=== PATIENT | male | born 1940 | race Caucasian/White ===

== ENCOUNTER → 2018-05-10 | Outpatient (CLI) | payer OTHER ==
[~2018-05-10] MED LIST: AMLO2.5T PO; AMLO5TAB3 PO; ASPEC81 PO; CHOL100010 PO; CRG3125 PO; Flax Seed Oil PO; PERFLUTREN LIPID MICROSPHERE (DEFINITY) IV ONE; SIMV80TA2 PO
--- NOTE | 2018-05-10 15:34 | ECHOCARDIOGRAM REPORT ---
*NOTICE TO RECEIVING [employer] This information is strictly Confidential and protected under [place] law. [place] law prohibits you from making any further disclosure of this information unless further disclosure is expressly permitted by the written consent of the person to whom it pertains or is authorized by law. A general authorization for the release of medical or other information is not sufficient for this purpose. Hospital accepts no responsibility if the information is made available to any other person, INCLUDING THE PATIENT. Interpretation Summary * Name: ADRIANO JOHNSON Study Date: 05/10/2018 01:39 PM BP: 135/88 mmHg * Patient Location: [facility] HR: 86 * : 1940 (M/d/yyyy) Gender: Male Height: 68 in * Age: 77 yrs Ethnicity: [place] Weight: 220 lb * Ordering Physician: Mireya, No * Referring Physician: Orlando Nolan D.O. * Performed By: Sheree Owens RDCS * * Reason For Study: SOB * BSA: 2.1 m2 * -- Conclusions -- * There is moderate concentric left ventricular hypertrophy. * Left ventricular systolic function is normal. * Grade I diastolic dysfunction, (abnormal relaxation pattern). * The right ventricle is mildly dilated. * Mild aortic regurgitation. * Right ventricular systolic pressure is elevated at 50-60mmHg. * Borderline aortic root dilatation. Procedure Details * A contrast injection of Definity was performed to improve assessment of LV function. * Contrast was injected into an intravenous site in the left arm. * One vial of Definity ultrasound contrast was diluted in normal saline to a total volume of 10 ml. A total of '1' ml of solution was administered during imaging. * Lot # [id number] of Definity utilized for procedure. * Expiration date APR 28. * The attending nurse who injected the contrast agent was LOPEZ ALVARADO RN. Left Ventricle * The left ventricle is normal in size. * There is moderate concentric left ventricular hypertrophy. * Left ventricular systolic function is normal. * Ejection Fraction = 55-60%. * Grade I diastolic dysfunction, (abnormal relaxation pattern). * The left ventricular wall motion is normal. Right Ventricle * The right ventricle is mildly dilated. * The right ventricular systolic function is normal. Atria * The left atrial size is normal. * Right atrial size is normal. Mitral Valve * The mitral valve is grossly normal. * Significant mitral regurgitation is absent. Tricuspid Valve * The tricuspid valve is not well visualized, but is grossly normal. * There is mild tricuspid regurgitation. * Right ventricular systolic pressure is elevated at 50-60mmHg. Aortic Valve * The aortic valve is normal in structure and function. * The aortic valve is trileaflet. * No hemodynamically significant valvular aortic stenosis. * Mild aortic regurgitation. Pulmonic Valve * The pulmonic valve is not well visualized. Great Vessels * Borderline aortic root dilatation. Pericardium/Pleural * The pericardium appears normal. MMode 2D Measurements and Calculations IVSd 1.6 cm IVSs 2.1 cm LVIDd 4.2 cm LVIDs 2.8 cm LVPWd 1.7 cm LVPWs 2.0 cm IVS/LVPW 0.94 FS 35.0 % EDV(Teich) 80.8 ml ESV(Teich) 28.6 ml EF(Teich) 64.6 % EDV(cubed) 76.7 ml ESV(cubed) 21.1 ml EF(cubed) 72.5 % % IVS thick 29.1 % % LVPW thick 16.5 % LV mass(C)d 297.7 grams LV mass(C)dI 139.9 grams/m\S\2 LV mass(C)s 248.7 grams LV mass(C)sI 116.8 grams/m\S\2 SV(Teich) 52.2 ml SI(Teich) 24.5 ml/m\S\2 SV(cubed) 55.6 ml SI(cubed) 26.1 ml/m\S\2 Ao root diam 4.0 cm Ao root area 12.8 cm\S\2 LA dimension 3.8 cm LA/Ao 0.95 LVAd ap4 26.0 cm\S\2 LVLd ap4 7.9 cm EDV(MOD-sp4) 73.8 ml EDV(sp4-el) 72.6 ml LVAs ap4 14.5 cm\S\2 LVLs ap4 6.9 cm ESV(MOD-sp4) 28.4 ml ESV(sp4-el) 25.7 ml EF(MOD-sp4) 61.4 % EF(sp4-el) 64.6 % LVAd ap2 25.9 cm\S\2 LVLd ap2 8.2 cm EDV(MOD-sp2) 67.7 ml EDV(sp2-el) 69.6 ml LVAs ap2 14.5 cm\S\2 LVLs ap2 6.6 cm ESV(MOD-sp2) 26.7 ml ESV(sp2-el) 26.9 ml EF(MOD-sp2) 60.5 % EF(sp2-el) 61.4 % LVLd %diff 3.6 % EDV(MOD-bp) 70.8 ml LVLs %diff -4.48 % ESV(MOD-bp) 27.0 ml EF(MOD-bp) 61.9 % SV(MOD-sp4) 45.3 ml SI(MOD-sp4) 21.3 ml/m\S\2 SV(MOD-sp2) 41.0 ml SI(MOD-sp2) 19.3 ml/m\S\2 SV(MOD-bp) 43.9 ml SI(MOD-bp) 20.6 ml/m\S\2 SV(sp4-el) 46.9 ml SI(sp4-el) 22.0 ml/m\S\2 SV(sp2-el) 42.7 ml SI(sp2-el) 20.1 ml/m\S\2 Doppler Measurements and Calculations MV E max nesha 49.9 cm/sec MV A max nesha 88.6 cm/sec MV E/A 0.56 MV dec time 0.35 sec Ao V2 max 131.1 cm/sec Ao max PG 6.9 mmHg Ao max PG (full) 0.99 mmHg AI max nesha 398.6 cm/sec AI max PG 63.6 mmHg AI dec slope 192.4 cm/sec\S\2 AI P1/2t 606.8 msec LV V1 max PG 5.9 mmHg LV V1 max 121.3 cm/sec TR max nesha 345.1 cm/sec
--- NOTE | 2018-05-11 12:54 | PULMONARY FUNCTION TEST ---
Spirometry is normal. Repeat study done following bronchodilators showed significant improvement in small airways function only. Flow volume loops were consistent with spirometric findings.
== END | disposition home or self-care (01) ==
LOC: C.RC 12:21
PROVIDERS: ATTEND Family Medicine
DX: R06.02 Shortness of breath (principal); R05 Cough

== ENCOUNTER → 2018-06-02 | Outpatient (CLI) | payer OTHER ==
[~2018-06-02] MED LIST changes: -PERFLUTREN LIPID MICROSPHERE (DEFINITY) IV ONE
[2018-06-02 16:39] LABS: BASO % 0.3 %; BASO ABS # 0.02 K/uL (0-0.2); EOS % 1.8 %; EOS ABS # 0.12 K/uL (0-0.5); HEMATOCRIT 43.1 % (42-52); HEMOGLOBIN 14.3 g/dL (14.0-18.0); IG# 0.02 K/uL (0.00-0.02); LYMPH % 24.7 %; LYMPH ABS # 1.63 K/uL (1.2-3.4); MEAN CELL VOLUME 98.2 fL (80-100); MEAN CORPUSCULAR HEMOGLOBIN 32.6 pg (25-34); MEAN CORPUSCULAR HGB CONC 33.2 g/dl (32-36); MEAN PLATELET VOLUME 11.2 fL (7.4-10.4); MONO ABS # 0.66 K/uL (0.11-0.59); NEUT % 62.9 %; NEUT ABS # 4.15 K/uL (1.4-6.5); PLATELET COUNT 238 K/uL (130-400); RED CELL DISTRIBUTION WIDTH CV 13.6 % (11.5-14.5); RED CELL DISTRIBUTION WIDTH SD 48.5 fL (36.4-46.3)
[2018-06-02 17:00] LABS: ALBUMIN 3.7 gm/dl (3.4-5.0); ALKALINE PHOSPHATASE 39 U/L (45-117); ALT/SGPT 30 U/L (12-78); AST/SGOT 21 U/L (15-37); BLOOD UREA NITROGEN 15 mg/dl (7-18); CALCIUM 9.3 mg/dl (8.5-10.1); CARBON DIOXIDE 21 mmol/L (21-32); CREATININE 1.09 mg/dl (0.60-1.40); GLUCOSE 97 mg/dl (70-99); POTASSIUM 3.8 mmol/L (3.5-5.1); SODIUM 140 mmol/L (136-145); TOTAL PROTEIN 7.7 gm/dl (6.4-8.2)
== END | disposition home or self-care (01) ==
LOC: C.LAB1850 15:18
PROVIDERS: ATTEND Internal Medicine Pulmonary Disease
DX: R10.2 Pelvic and perineal pain (principal)